=== PATIENT | female | born 1955 | race Caucasian/White ===

== ENCOUNTER 2020-09-07 06:44 | Day surgery (SDC) | payer OTHER ==
[~2020-09-07] VITALS: Ht 160 cm; Wt 78.1 kg
[~2020-09-07 06:44] MED LIST: ALBU90OI INH; ATOR20 PO; BENZ100A PO; LOSARTAN-HCTZ1 EAC6 PO; METF500 PO; Prednisone20 MG PO
--- NOTE | 2020-09-07 09:12 | NUR ---
09/07/20 0912 Marian Hernandez WHEN ASKED PT. IF SHE HAD ANY PAIN, PT. STATES IV "SLIGHTLY UNCOMFORTABLE." PT. WANTED HER IV OUT BEFORE SHE DRANK HER COFFEE.
== END 2020-09-07 09:10 | disposition home or self-care (01) ==
LOC: ORSCSDS 06:44
PROVIDERS: Student in an Organized Health Care Education/Training Program
PROC: 0DJD8ZZ Inspection of Lower Intestinal Tract, Via Natural or Artificial Opening Endoscopic (ICD-10-PCS; principal; 2020-09-07 08:00)
DX: Z12.11 Encounter for screening for malignant neoplasm of colon (principal); Z86.010 Personal history of colon polyps; K62.89 Other specified diseases of anus and rectum; K57.30 Diverticulosis of large intestine without perforation or abscess without bleeding; E78.5 Hyperlipidemia, unspecified; E11.9 Type 2 diabetes mellitus without complications; I10 Essential (primary) hypertension; Z87.891 Personal history of nicotine dependence; Z79.84 Long term (current) use of oral hypoglycemic drugs; Z79.899 Other long term (current) drug therapy
CPT/HCPCS: 82947; J0461; J2405; J2704; J7120

== ENCOUNTER → 2021-06-03 | Outpatient (CLI) | payer OTHER | END | disposition home or self-care (01) | LOC: LAB SHORT 12:00 | DX: E11.9 Type 2 diabetes mellitus without complications (principal) | CPT/HCPCS: 82043 ==

== ENCOUNTER → 2024-11-27 | Outpatient (CLI) | payer OTHER ==
[2024-11-27 20:01] LABS: Creatinine, Urine Random 11.9 mg/dL (27.00-270.00); Microalb/Creat Ratio UR, Rand 81.344 mg/g (0.000-30.000); Microalbumin, Random Urine 9.68 mg/L (0.000-20.000)
== END ==
LOC: LAB SHORT 18:20 → LAB 18:20
DX: E11.9 Type 2 diabetes mellitus without complications (principal)
CPT/HCPCS: 82043; 82570

== ENCOUNTER 2025-08-12 11:07 | Day surgery (SDC) | payer OTHER ==
[~2025-08-12] VITALS: Ht 162.6 cm; Wt 76.7 kg
[~2025-08-12 11:07] MED LIST changes: +Crestor40 MG PO; +IRBE150 PO
[2025-08-12 13:22] VITALS: BP 122/57
== END 2025-08-12 13:26 | disposition home or self-care (01) ==
LOC: ORSCSDS 11:07
PROVIDERS: Internal Medicine Gastroenterology
PROC: 0DBK8ZX Excision of Ascending Colon, Via Natural or Artificial Opening Endoscopic, Diagnostic (ICD-10-PCS; principal; 2025-08-12 12:45)
DX: Z12.11 Encounter for screening for malignant neoplasm of colon (principal); D12.2 Benign neoplasm of ascending colon; K57.30 Diverticulosis of large intestine without perforation or abscess without bleeding; Z86.0100 Personal history of colon polyps, unspecified
CPT/HCPCS: 82947; 88305; J2704; J7120